=== PATIENT | female | born 1980 | race Caucasian/White ===

== ENCOUNTER 2023-03-17 18:20 | Emergency (ER) | payer SELFPAY ==
[~2023-03-17] VITALS: Ht 188 cm; Wt 91.0 kg
[2023-03-17 18:35] VITALS: BP 144/88; TEMP 98.4; O2SAT 98
[2023-03-17] MEDS ORDERED: SODIUM CHLORIDE 0.9% 1,000 ML IV ONE (19:00)
[2023-03-17 19:51] LABS: EOSINOPHILS % 3.1 % (0.0-5.0); HEMATOCRIT. 39.5 % (36.0-48.0); HEMOGLOBIN. 12.6 g/dL (12.0-16.0); MEAN CORPUSCULAR HEMOGLOBIN 29.3 pg (28.0-32.0); MEAN CORPUSCULAR VOLUME 91.6 fL (81.0-99.0); MEAN PLATELET VOLUME 7.5 fl (7.4-10.4); MONOCYTES % 8.3 % (2.0-8.0); NEUTROPHILS % 69.6 % (40.0-76.0); PLATELET 374 x1000/uL (130-400); RED BLOOD CELL COUNT 4.31 mill/uL (4.2-5.4); RED CELL DISTRIBUTION WIDTH 13.4 % (11.6-14.6)
[2023-03-17 20:02] LABS: CHLORIDE 105 mEq/L (98-107); INDEX HEMOLYSI 1 (1-3); INDEX ICTERIC 1 (1-4); INDEX LIPEMIC 1 (1-3); POTASSIUM 3.1 mEq/L (3.5-5.1); SODIUM 135 mEq/L (136-145)
[2023-03-17 20:04] LABS: CALCIUM 8.6 mg/dL (8.5-10.1)
[2023-03-17 20:05] LABS: ALBUMIN 3.7 g/dL (3.4-5.0); CARBON DIOXIDE 21 mEq/L (21-32); GLUCOSE 146 mg/dL (70-105); UREA NITROGEN BLOOD 15 mg/dL (7-21)
[2023-03-17 20:10] LABS: ALANINE AMINOTRANSFERASE 18 IU/L (13-61); ASPARTATE AMINOTRANSFERASE 14 IU/L (15-37); BILIRUBIN TOTAL 0.8 mg/dL (0.1-1.0); CREATININE 0.8 mg/dL (0.6-1.3); ETHANOL BLOOD < 10 mg/dL (-10); PROTEIN TOTAL 7.6 g/dL (6.0-8.3)
[2023-03-17 20:15] LABS: HCG SCREEN NEGATIVE
[2023-03-17] MEDS ORDERED: POTASSIUM CHLORIDE 20MEQ TABLET SR PO ONE (20:45)
[2023-03-17] MEDS ORDERED: POTASSIUM CHLORIDE 20MEQ TABLET SR PO NR (23:00)
[2023-03-17 23:19] VITALS: PULSE 100; RESP 20
[2023-03-18 01:20] LABS: CLARITY URINE CLEAR (CLEAR); COLOR URINE YELLOW (YELLOW); GLUCOSE URINE NEGATIVE (NEGATIVE); KETONES URINE NEGATIVE (NEGATIVE); LEUKOCYTE ESTERASE URINE 2+ (NEGATIVE); NITRITE URINE NEGATIVE (NEGATIVE); OCCULT BLOOD URINE NEGATIVE (NEGATIVE); PROTEIN URINE NEGATIVE (NEGATIVE); UROBILINOGEN URINE 0.2 E.U./dL (0.2-1.0)
[2023-03-18 01:37] LABS: *AMPHETAMINES SCREEN URINE NEGATIVE (NEGATIVE); *BARBITURATES SCREEN URINE NEGATIVE (NEGATIVE); *BENZODIAZEPINES SCREEN URINE NEGATIVE (NEGATIVE); *COCAINE SCREEN URINE NEGATIVE (NEGATIVE); ECSTASY MDMA SCREEN URINE NEGATIVE (NEGATIVE); METHADONE URINE SCREEN NEGATIVE (NEGATIVE); OPIATES URINE SCREEN NEGATIVE (NEGATIVE); PHENCYCLIDINE URINE SCREEN NEGATIVE (NEGATIVE)
[2023-03-18 01:48] LABS: CANNABINOID URINE SCREEN PRESUMTIVE POSITIVE (NEGATIVE)
[2023-03-18 02:08] LABS: BACTERIA URINE 1+; RBC URINE 0-2 /hpf (0-2); SQUAMOUS EPITHELIAL CELL URINE 2+ /lpf (RARE/1+)
[2023-03-18] MEDS ORDERED: POTASSIUM CHLORIDE 20MEQ TABLET SR PO NR (04:45)
== END 2023-03-18 04:55 | disposition home or self-care (01) ==
LOC: ER 18:20
DX: F14.10 Cocaine abuse, uncomplicated (principal); F12.10 Cannabis abuse, uncomplicated
CPT/HCPCS: 80053; 80320; 84703; 85025; 36415; 99283; 80305; 81003; J7030; G0480